=== PATIENT | female | born 1990 | race Caucasian/White ===

== ENCOUNTER 2025-07-10 17:40 | Emergency (ER) | payer OTHER, SELFPAY ==
--- OUTSIDE RECORDS SUMMARY | 2025-07-10 14:49 | XMS_ITS | Encounter Summary ---
Author Organization [facility] Address [address] [place] [address] Care Team Providers Care Media Librarian Name Role Phone No Ref-Primary, Physician Primary Care Provider Reason for Visit * ReasonCommentsNausea & VomitingConstipationAbdominal Pain Encounter Details DateTypeDepartmentCare Team (Latest Contact Info)Dyspklyogqw15/16/2025 2:49 PM CSTEmergency [facility] Emergency Dept [address] [place] [address] Social History Tobacco UseTypesPacks/DayYears UsedDateSmoking Tobacco: Never AssessedAdolescent EducationAnswerDate RecordedGetting School Help NeededNot on file05/02/2023 CommentsNoSex and Gender InformationValueDate RecordedSex Assigned at BirthNot on fileLegal MjwRwfkzl76/04/2012 3:16 AM CSTGender IdentityNot on file Sexual OrientationNot on filedocumented as of this encounter Last Filed Vital Signs Vital SignReadingTime TakenCommentsBlood Brucvbqu562/5707/10/2025 3:14 PM [facility] Cbbgq424007/10/2025 3:14 PM SAUXwizkwumgef05.6 ??C (97.8 ??F)07/10/2025 3:15 PM CSTRespiratory Rtut819609/10/2024 3:14 PM CSTOxygen Yjlomocrjh734%07/10/2025 3:14 PM CSTInhaled Oxygen Concentration--Weight--Height--Body Mass Index--documented in this encounter Functional Status * Calculated C-SSRS Risk Score (Lifetime/Recent)AnswerDate of AssessmentAuthorNo Risk Jvuyhwlmx52/16/2025 3:14 PM Carlota Rodriguez RN * [place] Suicide Severity Rating Scale (Screener/Recent Self-Report)Question AnswerDate of AssessmentAuthor1. Wish to be (Past 1 Month)No07/10/2025 3:14 PM Carlota Rodriguez RN2. Non-Specific Active Suicidal Thoughts (Past 1 Month)No07/10/2025 3:14 PM Carlota Rodriguez, RN6. Suicidal Behavior (Lifetime)No07/10/2025 3:14 PM Carlota Rodriguez RN documented as of this encounter ED Notes * Carlota Lopez RN - 07/10/2025 3:15 PM CST Constipation for the past 4 days. Took exlax last night. Had 4 BMs today. Nausea and vomiting started today. Patient reports taking ODT zofran at home, but states she vomited the medication. In triage, she also reports dizziness and abdominal pain. R COATER R COATER documented in this encounter Plan of Treatment Not on file documented as of this encounter Procedures Procedure NamePriorityDate/TimeAssociated DiagnosisCommentsEXTRA TUBESTAT 07/10/2025 3:36 PM [facility] EXTRA RED TOP IRHSFYZU13/16/2025 3:36 PM [facility] EXTRA BLUE TOP BFDIWVCM12/16/2025 3:36 PM COL[facility] COATER CBC WITH PLATELETS (LIMITED OCCURRENCES)STAT109/10/2024 3:36 PM [facility] BASIC METABOLIC PANEL (LIMITED OCCURRENCES)STAT109/10/2024 3:36 PM [facility] EKG 12-LEAD, TRACING EAYRMPXE36/16/2025 3:21 PM [facility]ATER documented in this encounter Results * Extra Red Top Tube (07/10/2025 3:36 PM [facility]ATER)ComponentValueRef RangeTest Method Analysis TimePerformed AtPathologist SignatureHold AoshmkdzPJB78/16/2025 5:16 PM CST LABORATORYSpecimen (Source)Anatomical Location / LateralityCollection Method / VolumeCollection TimeReceived TimeBloodSTRUCTURE OF LEFT UPPER LIMB / UnknownVenipuncture / Mcngcqt0307/10/2025 3:36 PM CST07/10/2025 4:03 PM [facility] Narrative Authorizing ProviderResult TypeResult StatusAlbin Reddy [facility] - BLOOD ORDERABLESFinal ResultPerforming OrganizationAddressCity/State/ZIP CodePhone Number [facility] [address] Lab (1st floor, no room number) [place] [address], [place] * Extra Blue Top Tube (07/10/2025 3:36 PM [facility])ComponentValueRef RangeTest Method Analysis TimePerformed AtPathologist SignatureHold PrkcqiulMIQ43/16/2025 5:[address] [facility] LABORATORYSpecimen (Source)Anatomical Location / LateralityCollection Method / VolumeCollection TimeReceived TimeBloodSTRUCTURE OF LEFT UPPER LIMB / UnknownVenipuncture / Qmgfwbt0707/10/2025 3:36 PM CST07/10/2025 4:03 PM [facility] Narrative Authorizing ProviderResult TypeResult StatusAlbin Reddy [facility] - BLOOD ORDERABLESFinal ResultPerforming OrganizationAddressCity/State/ZIP CodePhone Number [facility] Lab [address] Lab (1st floor, no room number) [place] [address], [place] * (ABNORMAL) Basic Metabolic Panel (Limited Occurrences) (07/10/2025 3:36 PM [facility]ATER)ComponentValueRef RangeTest MethodAnalysis TimePerformed AtPathologist IutejwnqqPdzpte032843 - 145 mmol/L109/10/2024 4:29 PM CST LABORATORYPotassium 3.93.4 - 5.3 mmol/L109/10/2024 4:29 PM CSTRH LEMPGYBHCZMaqkwefi05765 - 107 mmol/L109/10/2024 4:29 PM CST LABORATORYCarbon Dioxide (CO2)20(L)22 - 29 mmol/L109/10/2024 4:29 PM CST LABORATORYAnion Gap17(H)7 - 15 mmol/L109/10/2024 4:[address] [facility] LABORATORYUrea Nitrogen9.56.0 - 20.0 mg/dL07/10/2025 4:29 PM [facility] LABORATORYCreatinine0.540.51 - 0.95 mg/dL07/10/2025 4:[address] [facility] LABORATORYGFR Estimate>90>60 mL/min/1.82b42607/10/2025 4:[address] [facility] Comment:eGFR calculated using 2020 CKD-EPI equation.Calcium9.08.8 - 10.4 mg/dL 07/10/2025 4:[address] [facility] WUGGVYUAVPAhpnmzu691(H)70 - 99 mg/dL07/10/2025 4:[address] [facility] LABORATORYSpecimen (Source)Anatomical Location / LateralityCollection Method / VolumeCollection TimeReceived TimeBloodSTRUCTURE OF LEFT UPPER LIMB / UnknownVenipuncture / Ikfijtd4007/10/2025 3:36 PM CST07/10/2025 4:03 PM [facility] Narrative Authorizing ProviderResult TypeResult StatusAndелена Reddy [facility] - BLOOD ORDERABLESFinal ResultPerforming OrganizationAddressCity/State/ZIP CodePhone Number [facility] [address] Lab (1st floor, no room number) [place] [address] * CBC with Platelets (Limited Occurrences) (07/10/2025 3:36 PM [facility])Component ValueRef RangeTest MethodAnalysis TimePerformed AtPathologist SignatureWBC Count6.354.00 - 11.00 10e3/uL07/10/2025 4:[address] [facility] LABORATORYRBC Count4.05 3.80 - 5.20 10e6/uL07/10/2025 4:[address] [facility] GEZFUIPXVCKqcpsttblh15.711.7 - 15.7 g/dL07/10/2025 4:[address] [facility] SKBJAOOJCBDmngqxulpq81.435.0 - 47.0 % 07/10/2025 4:[address] [facility] EJDKVEYQKGLNE62.978.0 - 100.0 fL07/10/2025 4:[address] [facility] KXEHXSJKXOUNX91.426.5 - 33.0 pg07/10/2025 4:[address] [facility] LABORATORYMCHC 34.931.5 - 36.5 g/dL07/10/2025 4:[address] [facility] KHNLMOXKMIEQF81.610.0 - 15.0 % 07/10/2025 4:[address] [facility] LABORATORYPlatelet Bkxdl498753 - 450 10e3/uL 07/10/2025 4:[address] [facility] LABORATORYSpecimen (Source)Anatomical Location / LateralityCollection Method / VolumeCollection TimeReceived TimeBloodSTRUCTURE OF LEFT UPPER LIMB / UnknownVenipuncture / Nphslfs5507/10/2025 3:36 PM [facility]ATER 07/10/2025 4:03 PM [facility] Narrative Authorizing ProviderResult TypeResult StatusAlbin SCHWARTZ - BLOOD ORDERABLESFinal ResultPerforming OrganizationAddressCity/State/ZIP CodePhone Number [facility] [address] Lab (1st floor, no room number) [place] [address] * EKG 12-lead, tracing only (07/10/2025 3:21 PM [facility])ComponentValueRef RangeTest MethodAnalysis TimePerformed AtPathologist SignatureSystolic Blood Pressure mmHgRADIOLOGY RESULTSDiastolic Blood PressuremmHgRADIOLOGY RESULTSVentricular Novb08XNSIARIZTYMM RESULTSAtrial Bpbo57QNXSHBHLTUWO RESULTSPR Heupmfkj45vk RADIOLOGY RESULTSQRS Foareoum79niTBCTUHZCU LUQCJDGJR204puFACZAKAKM RESULTSQTc 450msRADIOLOGY RESULTSP Emgp97lutbfwaMQVJQSDEA RESULTSR NOCO28zkgbneuJFZQQNXTB RESULTST Zwmv53dybmgcdWECETPJWP RESULTSInterpretation ECGSinus rhythm with short ND Otherwise normal ECG No previous ECGs available Unconfirmed report - interpretation of this ECG is computer generated - see medical record for final interpretation Confirmed by - EMERGENCY ROOM, PHYSICIAN ([id number]), clinical editor Milan Silva ([id number]) on 07/10/2025 3:33:27PM RADIOLOGY RESULTSSpecimen (Source)Anatomical Location / LateralityCollection Method / VolumeCollection TimeReceived Time07/10/2025 3:21 PM CST07/10/2025 3:33 PM [facility] COATER Narrative Authorizing ProviderResult TypeResult StatusAlbin RHODES ORDERABLES Edited Result - FinalPerforming OrganizationAddressCity/State/ZIP CodePhone Number RADIOLOGY RESULTS documented in this encounter Visit Diagnoses Not on filedocumented in this encounter Care Teams Team MemberRelationshipSpecialtyStart DateEnd Date No Ref-Primary, Physician PCP - General10/30/18documented as of this encounter
[2025-07-10 17:43] VITALS: BP 115/74; PULSE 75; RESP 18; TEMP 37.2; O2SAT 100
--- NOTE | 2025-07-10 17:56 | ED.GENADULT ---
HPI - General Adult General Date Seen: 07/10/25 Chief complaint: Nausea/Vomiting Stated complaint: vomiting, constipated Time Seen by Provider: 07/10/25 17:55 History of Present Illness HPI narrative: 34 yo F presenting to the ER today with vomiting and concern for constipation, with inability to pass much bowel. She had been at another ER but left because the wait time was too long. [facility] she has a past medical history of AD D, anxiety AFTAB, previous construct substance agreement (for Adderall). I am not able to see any lab results from the other ER. She reports that she had gone about 4 days without passing any bowel movement. She had been traveling up to [place] and says she typically does not have bowel movements unless she is at home. Because of her travel she did not have any p.m. on Wednesday, Wednesday, Wednesday, and also did not have 1 on Wednesday. She does not otherwise have a history of constipation or other GI problems. She has no history of GI surgery. No history of IBS or IBD. She had been on antibiotics about a week or 2 ago for a kidney infection (started with Rocephin and then she was put on an oral antibiotic (cannot recall the name)). She has been doing well from that standpoint. No urinary symptoms. No flank pain. No fever. Because she was constipated yesterday evening she took some Ex-Lax. This morning she did have a couple of bowel movements that were initially brown soft and then diarrhea. After that she has developed some pain across her upper abdomen and also nausea and vomiting throughout the day. She has had multiple episodes of nonbilious, nonbloody emesis (has been clear and sometimes yellowish). She went to the ER in [place] but but threw up about 10 or 15 times while waiting in their lobby for an hour and 45 minutes. She and her family decided to leave there and come here to [place] because she was not able to get care quickly enough. She is not having a fever. No blood in her vomit. No headache. She did have 3 alcoholic beverages on Wednesday night when she was with her friends in [place]. No other heavy alcohol intake. Related Data Home Medications ?Medication ?Instructions ?Recorded ?Confirmed escitalopram oxalate 10 mg tablet 10 mg PO DAILY 07/10/25 07/10/25 Previous Rx's ?Medication ?Instructions ?Recorded metoclopramide HCl 10 mg tablet 10 mg PO Q6H PRN nausea and 07/10/25 (Reglan) vomiting #10 tabs Allergies Allergy/AdvReac Type Severity Reaction Status Date / Time No Known Drug Allergies Allergy Verified 07/10/25 19:03 Exam Narrative: Exam Narrative: Constitutional: Appears well-developed and well-nourished. Alert. Conversant. Uncomfortable and was very dramatic in triage. Once she is in bed she is conversant. She is a nurse at [employer]. HENT: Head: Atraumatic. Nose: Nose normal. Mouth/Throat: Oral mucosa is clear but dry. not desiccated or cracked.. no trismus. Pharynx normal. Tonsils symmetric. No tonsillar enlargement, erythema, or exudate. Eyes: Conjunctivae normal. EOM normal. Pupils equal, round, and reactive to light. No scleral icterus. Neck: Normal range of motion. Neck supple. No tracheal deviation present. Cardiovascular: Normal rate, regular rhythm. No gallop. No friction rub. No murmur heard. Symmetric radial artery pulses Pulmonary/Chest: Effort normal. No stridor. No respiratory distress. No wheezes. No rales. No rhonchi . No tenderness. Abdominal: Soft. Bowel sounds normal. No distension. No mass. High epigastric, right upper quadrant, left upper quadrant tenderness. No James sign. No flank tenderness. No lower abdominal tenderness. No distension. No rebound. No guarding. Musculoskeletal: RUE: Normal range of motion. No tenderness. No deformity LUE: Normal range of motion. No tenderness. No deformity RLE: Normal range of motion. No edema. No tenderness. No deformity LLE: Normal range of motion. No edema. No tenderness. No deformity Neurological: Alert and oriented to person, place, and time. Normal strength. CN II-VII intact. No sensory deficit. GCS eye subscore is 4. GCS verbal subscore is 5. GCS motor subscore is 6. Normal coordination Skin: Skin is warm and dry. No rash noted. No pallor. Normal capillary refill. Psychiatric: Normal mood. Normal affect. Const: Vital Signs, click to edit/add: Vital Signs - 24 hr 07/10/25 17:43 07/10/25 20:26 Temperature 99.0 F Pulse Rate 75 Pulse Rate [Right Pulse Oximeter] 75 Respiratory Rate 18 18 Blood Pressure 105/79 Blood Pressure [Ri ght Upper Arm] 115/74 Pulse Oximetry 100 99 Oxygen Delivery Me thod Room Air Room Air Course Course ED Course: Recheck nausea improved but not resolved after Zofran. Having lot of heartburn. Reevaluation(s) Reevaluation #1: Recheck-nausea improved after Reglan. Heartburn resolved after GI cocktail. Reevaluation #2: Recheck-tolerating p.o.. Still cannot have a bowel movement. No further diarrhea. No further vomiting. Vital Signs Vital signs: Initial Vital Signs Temperature 99.0 F 07/10/25 17:43 Temperature Source Temporal Artery Scan 07/10/25 17:43 Pulse Rate 75 07/10/25 17:43 Pulse Rhythm Regular 07/10/25 17:43 Pulse Strength 3+ Normal 07/10/25 17:43 Respiratory Rate 18 07/10/25 17:43 Blood Pressure 115/74 07/10/25 17:43 Blood Pressure Mean 87 07/10/25 17:43 Blood Pressure Position Sitting 07/10/25 17:43 Pulse Oximetry 100 07/10/25 17:43 Oxygen Delivery Method Room Air 07/10/25 17:43 Vital Signs Temperature 99.0 F 07/10/25 17:43 Pulse Rate 75 07/10/25 17:43 Respiratory Rate 18 07/10/25 17:43 Blood Pressure 115/74 07/10/25 17:43 Pulse Oximetry 100 07/10/25 17:43 Oxygen Delivery Method Room Air 07/10/25 17:43 Temperature 99.0 F 07/10/25 17:43 Pulse Rate 75 07/10/25 20:26 Respiratory Rate 18 07/10/25 20:26 Blood Pressure 105/79 07/10/25 20:26 Pulse Oximetry 99 07/10/25 20:26 Oxygen Delivery Method Room Air 07/10/25 20:26 Medications Administered Medications: Discontinued Medications Generic Name Dose Route Start Last Admin Trade Name Freq PRN Reason Stop Dose Admin Diphenhydramine HCl 25 mg 07/10/25 20:12 07/10/25 20:20 Diphenhydramine 50 Mg/Ml Inj IVP 07/10/25 20:13 25 mg ONCE ONE Administration Sodium Chloride 1,000 mls @ 1,000 mls/hr 07/10/25 18:15 07/10/25 19:30 0.9 % Sodium Chloride 1000 Ml IV 07/10/25 19:14 Infused .Q1H KATHY Infusion Lidocaine/Aluminum/Magnesium/Simeth 30 ml 07/10/25 20:47 07/10/25 20:55 Gi Cocktail (Visc Lido/Antacid) 30 Ml PO 07/10/25 20:48 30 ml ONCE ONE Administration Metoclopramide HCl 10 mg 07/10/25 20:12 07/10/25 20:22 Metoclopramide Hcl 5 Mg/Ml Inj IVP 07/10/25 20:13 10 mg ONCE ONE Administration Ondansetron HCl 4 mg 07/10/25 18:02 07/10/25 18:25 Ondansetron 2 Mg/Ml Inj IVP 07/10/25 18:03 4 mg ONCE ONE Administration Medical Decision Making MDM Narrative Medical decision making narrative: This patient presents with vomiting and upper abdominal pain. She had had several days of constipation until she took some Ex-Lax last night and then had 3 soft stools this morning but no further bowel movements now for about 10 or 12 hours. The patient's symptoms and exam could be consistent with a viral GI infection. There is no high fever, severe pain, bilious or bloody emesis, blood or mucous in the stool, severe abdominal pain, or other concerning signs for a bacterial infection. No recent travel or high risk exposure for bacterial pathogen. However she just was on a course of antibiotics for pyelonephritis. We did obtain lab workup which is reassuring and CT scan because of her retracted vomiting which shows signs of colitis (no sign of perforation, abscess, obstruction, or surgical complication). Differential for colitis would include inflammatory bowel disease as well and infection. I have ordered stool studies to look for bacterial enteritis as well as for C. diff. I don't see any evidence for appendicitis, bowel obstruction, abscess, bowel perforation, or other surgical emergency. Labs show no concerning electrolyte disturbance or renal failure. After meds given the patient is feeling better. At this point, the patient is non-septic appearing and well hydrated.I think the patient can be managed as an outpatient. Fortunately her symptoms seem to have abated and she has not had any diarrhea now for tender 12 hours. Will send her home with a stool collection kit in case she has progressing symptoms. Recommended follow-up. Precautions for return to the ER reviewed. We have discussed oral rehydration strategies. They understand and can perform the needed interventions at home. I have provided a prescription for antiemetics to facilitate oral hydration (Reglan). We have discussed the signs and symptoms of worsening dehydration. They understand the need for immediate reevaluation if any of these symptoms occur. They are also directed to obtain close outpatient follow up . Lab Data Labs: Lab Results 07/10/25 07/10/25 Range/Units 18:10 18:52 WBC 8.09 (4.50-11.00) K/uL RBC 4.15 (4.00-5.20) m/uL Hgb 12.9 (12.0-16.0) gm/dL Hct 38.7 (33.0-51.0) % MCV 93 (80-100) fL MCH 31 (26-34) pg MCHC 33 (32-36) gm/dL RDW Coeff of Moo 11.5 (11.5-15.5) % Plt Count 238 (140-440) K/uL Neut % (Auto) 92.3 H (42.0-72.0) % Lymph % (Auto) 5.7 L (20-44) % Giles % (Auto) 1.7 (0.0-11.0) % Eos % (Auto) 0.0 (0.0-7.0) % Baso % (Auto) 0.1 (0.0-3.0) % Neut # (Auto) 7.50 H (1.7-7.0) K/uL Lymph # (Auto) 0.50 L (0.90-2.90) K/uL Giles # (Auto) 0.10 (0.00-0.90) K/UL Eos # (Auto) 0.00 (0.00-0.50) K/uL Baso # (Auto) 0.01 (0.00-0.30) K/uL Abs Immat Gran (auto) 0.02 (0.00-0.30) K/uL Imm/Tot Granulo (auto) 0.2 % Sodium 136 (135-149) mmol/L Potassium 3.9 (3.6-5.1) mmol/L Chloride 105 (96-114) mmol/L Carbon Dioxide 20 (20-32) mmol/L Anion Gap 11 (7-15) mEq/L BUN 10 (5-24) mg/dL Creatinine 0.5 (0.5-1.5) mg/dL Estimated GFR 125 ml/min Glucose 134 H (60-115) mg/dL Calcium 8.9 (8.4-10.6) mg/dL Total Bilirubin 0.7 (0.1-1.5) mg/dL AST 25 (12-35) U/L ALT 22 (4-35) U/L Alkaline Phosphatase 59 (40-150) U/L Total Protein 7.2 (6.0-8.3) g/dL Albumin 4.5 (3.3-5.0) g/dL Lipase 36 (23-300) U/L HCG, Qual Negative (Negative) Urine Color Yellow (Yellow) Urine Appearance Clear (Clear) Urine pH 6.0 (5.0-8.5) Ur Specific [place] >= 1.030 (1.000-1.030) Urine Protein 1+ A (Negative) Urine Glucose (UA) Negative (Negative) Urine Ketones 4+ A (Negative) Urine Blood Trace-intact A (Negative) Urine Nitrite Negative (Negative) Urine Bilirubin Negative (Negative) Urine Urobilinogen 0.2 (0.2-1.0) Ur Leukocyte Esterase Negative (Negative) Urine RBC 0-2 (0-2) Urine WBC 0-2 (0-5) Ur Squamous Epith Cells None (None-Few) Urine Bacteria None (None) Imaging Data CT scan - abdomen: Attestation: I have reviewed the pertinent imaging results. Radiologist's impression: IMPRESSION: 1. Findings suggestive of a diffuse nonspecific colitis. No evidence of bowel obstruction. 2. Bladder wall thickening is likely due to underdistention, however correlation with urinalysis is recommended. Discharge Plan Discharge Clinical Impression: Colitis, Vomiting, Acute dehydration Patient Disposition: Home, Self-Care Condition: Stable Instructions: Acute Nausea and Vomiting (DC), Colitis (ED) Additional Instructions: As we discussed, so far your laboratory workup looks reassuring. Your CT scan shows signs of mild colitis (inflammation of your large intestine). Because of the colitis is not clear at this time. This could be infectious, even possibly C diff. if you have any further diarrhea, please collect a sample and bring stool sample back to the [facility] lab for further testing. Please use nausea medication as needed to help treat nausea and vomiting. Drink plenty of fluids to stay hydrated. At solid foods your feeling better. Please follow-up with your regular doctor, or come back to the ER, in 48-72 hours if you are not feeling any better. If you get worse, such as high fever, bloody stool, severe abdominal pain, uncontrolled vomiting, please come back to the ER right away. Prescriptions: New metoclopramide HCl [Reglan] 10 mg tablet 10 mg PO Q6H PRN (Reason: nausea and vomiting) Qty: 10 0RF No Action escitalopram oxalate 10 mg tablet 10 mg PO DAILY Follow Up/Referrals: Provider,Not a Local [Primary Care Provider, Family Practice] Stand Alone Forms: [employer] Info Instructions
--- NOTE | 2025-07-10 18:02 | CRLHL7_ITS ---
For Patients: As a result of the Century Cures Act, medical imaging exams and procedure reports are released immediately into your electronic medical record. You may view this report before your referring provider. If you have questions, please contact your health care provider. INDICATION: Vomiting, nausea, no BM. TECHNIQUE: CT of the abdomen and pelvis acquired with 62 cc Isovue 370 IV contrast. Coronal and sagittal reconstructions. COMPARISON: None. FINDINGS: Lower chest: Unremarkable. Liver: Normal in size and attenuation. No suspicious masses. Gallbladder and bile ducts: Unremarkable. No biliary dilation. Spleen: Unremarkable. Pancreas: Unremarkable. Adrenal glands: Unremarkable. Kidneys, Ureters, and Bladder: Symmetric enhancement. No hydronephrosis or ureteral dilation. No obstructing urinary calculi. Decompressed thick-walled urinary bladder. Reproductive organs: IUD in the uterus. Small cysts or follicles in the left ovary which are likely physiologic. GI tract/Peritoneum: The stomach is grossly unremarkable. No small bowel dilation. The colon is mostly decompressed which limits evaluation, however there appears to be mild diffuse colonic wall thickening and mucosal hyperenhancement suggesting inflammation. Negative appendix. No intraperitoneal free air. Small amount of free fluid in the pelvis may be physiologic or reactive. Vasculature: Abdominal aorta is normal in caliber. Mesenteric arteries appear patent. Lymph nodes: No lymphadenopathy. Abdominal Wall: Abdominal wall scarring. Tiny fat containing umbilical hernia. Bones: Unremarkable for age. IMPRESSION: 1. Findings suggestive of a diffuse nonspecific colitis. No evidence of bowel obstruction. 2. Bladder wall thickening is likely due to underdistention, however correlation with urinalysis is recommended. Please note that all CT scans at this facility use dose modulation, iterative reconstruction, and/or weight-based dosing when appropriate to reduce radiation dose to as low as reasonably achievable. Dictated by Abbie Baca MD @ 07/10/2025 7:28:47 PM (Electronically Signed)
[2025-07-10 18:25] LABS: Hematocrit* 38.7 % (33.0-51.0); Hemoglobin* 12.9 gm/dL (12.0-16.0); Immature Granulocytes Abs Auto 0.02 K/uL (0.00-0.30); Immature Granulocytes Pct Auto 0.2 %; Mean Corpuscular HGB Conc 33 gm/dL (32-36); Mean Corpuscular Hemoglobin 31 pg (26-34); Mean Corpuscular Volume 93 fL (80-100); RDW Coefficient of Variation % 11.5 % (11.5-15.5); Red Blood Count* 4.15 m/uL (4.00-5.20); White Blood Count* 8.09 K/uL (4.50-11.00)
[2025-07-10] MEDS: ONDANSETRON 2 MG/ML inj 4 MG IVP (18:25)
[2025-07-10 18:33] LABS: Albumin* 4.5 g/dL (3.3-5.0); Chloride* 105 mmol/L (96-114); Potassium* 3.9 mmol/L (3.6-5.1); Sodium* 136 mmol/L (135-149)
[2025-07-10 18:36] LABS: Alanine Aminotransferase* 22 U/L (4-35); Alkaline Phosphatase* 59 U/L (40-150); Anion Gap 11 mEq/L (7-15); Aspartate Amino Transferase* 25 U/L (12-35); Bilirubin Total* 0.7 mg/dL (0.1-1.5); Blood Urea Nitrogen* 10 mg/dL (5-24); Carbon Dioxide* 20 mmol/L (20-32); Creatinine* 0.5 mg/dL (0.5-1.5); Estimated Glomerular Filt Rate 125 ml/min; Total Protein* 7.2 g/dL (6.0-8.3)
[2025-07-10 18:37] LABS: Calcium* 8.9 mg/dL (8.4-10.6); Glucose* 134 mg/dL (60-115)
--- OUTSIDE RECORDS SUMMARY | 2025-07-10 18:40 | XMS_ITS | Clinical Summary ---
Author Organization [facility] Address [address] [place] [address] Care Team Providers Care Melting Furnace Skimmer Name Role Phone No Ref-Primary, Physician Primary Care Provider Allergies No known active allergies Medications MedicationSigDispense QuantityRefillsLast FilledStart DateEnd DateStatus prochlorperazine (COMPAZINE) 10 MG tablet Take 1 tablet (10 mg) by mouth every 6 hours as needed (headache, please take with benadryl 25mg) 10 tablet 10/28/2018Active ibuprofen (ADVIL/MOTRIN) 200 MG tablet Take 200 mg by mouth every 4 hours as needed for mild painActive vyzmbmm-pxfskmeoyualu-yaomkbav (EXCEDRIN MIGRAINE) 250-250-65 MG tablet Take 1 tablet by mouth every 6 hours as needed for headachesActive SUMAtriptan (IMITREX) 25 MG tablet Take 25-100mg one time. May repeat 25mg every two hours up to a maximum of 200mg in 24 hours. 8 tablet 10/30/2018Active Resolved Problems ProblemNoted DateDiagnosed DateResolved DateTemporomandibular dysfunction naamvnsa09/09/2021Tension kfxzcves48/09/2021Neck pain /09/2021 Encounters DateTypeDepartmentCare AxlzKviorzwjsrh74/16/2025 2:49 PM CSTEmeaide [facility] [address] [place] [address] 07/10/2025Travelfrom Last 3 Months Social History Tobacco UseTypesPacks/DayYears UsedDateSmoking Tobacco: Never AssessedAdolescent EducationAnswerDate RecordedGetting School Help NeededNot on file05/02/2023 CommentsNoSex and Gender InformationValueDate RecordedSex Assigned at BirthNot on fileLegal CljChwvxw19/04/2012 3:16 AM CSTGender IdentityNot on file Sexual OrientationNot on file Last Filed Vital Signs Vital SignReadingTime TakenCommentsBlood Czzwmdem063/5707/10/2025 3:14 PM BIRD KEEPER Uczjk119807/10/2025 3:14 PM ZYFRrxtagprmue47.6 ??C (97.8 ??F)07/10/2025 3:15 PM CSTRespiratory Nphq689009/10/2024 3:14 PM CSTOxygen Mllqksjqoe297%07/10/2025 3:14 PM CSTInhaled Oxygen Concentration--Ndefec19 kg (134 lb 7.7 oz)10/30/2018 2:51 PM CDTHeight--Body Mass Index-- Plan of Treatment Not on file Procedures Procedure NamePriorityDate/TimeAssociated DiagnosisCommentsEXTRA RED TOP TUBE 07/10/2025 3:36 PM BIRD KEEPER EXTRA BLUE TOP JSLEUHES85/16/2025 3:36 PM BIRD KEEPER EXTRA WJYSHZYU00/16/2025 3:36 PM BIRD KEEPER BASIC METABOLIC PANEL (LIMITED OCCURRENCES)07/10/2025 3:36 PM BIRD KEEPER CBC WITH PLATELETS (LIMITED OCCURRENCES)07/10/2025 3:36 PM BIRD KEEPER EKG 12-LEAD, TRACING USXJNPTX96/16/2025 3:21 PM BIRD KEEPER from Last 3 Months Results * Extra Red Top Tube (07/10/2025 3:36 PM BIRD KEEPER)ComponentValueRef RangeTest Method Analysis TimePerformed AtPathologist SignatureHold SxknilsoLOA84/16/2025 5:16 PM [facility] LABORATORYSpecimen (Source)Anatomical Location / LateralityCollection Method / VolumeCollection TimeReceived TimeBloodSTRUCTURE OF LEFT UPPER LIMB / UnknownVenipuncture / Hghywks7307/10/2025 3:36 PM CST07/10/2025 4:03 PM BIRD KEEPER Narrative Authorizing ProviderResult TypeResult StatusAlbin Reddy MDLAB - BLOOD ORDERABLESFinal ResultPerforming OrganizationAddressCity/State/ZIP CodePhone Number [facility] [address] Lab (1st floor, no room number) [place] [address], [facility] * Extra Blue Top Tube (07/10/2025 3:36 PM BIRD KEEPER)ComponentValueRef RangeTest Method Analysis TimePerformed AtPathologist SignatureHold SkcwexdgFVH41/16/2025 5:16 PM [facility] LABORATORYSpecimen (Source)Anatomical Location / LateralityCollection Method / VolumeCollection TimeReceived TimeBloodSTRUCTURE OF LEFT UPPER LIMB / UnknownVenipuncture / Vnfjpws6107/10/2025 3:36 PM CST07/10/2025 4:03 PM BIRD KEEPER Narrative Authorizing ProviderResult TypeResult StatusAlbin SCHWARTZ - BLOOD ORDERABLESFinal ResultPerforming OrganizationAddressCity/State/ZIP CodePhone Number [facility] [address] Lab (1st floor, no room number) [place] [address], [facility] * CBC with Platelets (Limited Occurrences) (07/10/2025 3:36 PM BIRD KEEPER)Component ValueRef RangeTest MethodAnalysis TimePerformed AtPathologist SignatureWBC Count6.354.00 - 11.00 10e3/uL07/10/2025 4:08 PM [facility] LABORATORYRBC Count4.05 3.80 - 5.20 10e6/uL07/10/2025 4:08 PM [facility] UOFBXOOCGCJqvhuphzea88.711.7 - 15.7 g/dL07/10/2025 4:08 PM [facility] LYRBHGGHDYTznsfwiede46.435.0 - 47.0 % 07/10/2025 4:08 PM [facility] ADRHVQMXTDKTW26.978.0 - 100.0 fL07/10/2025 4:08 PM [facility] EPJHWEHRJBPTQ47.426.5 - 33.0 pg07/10/2025 4:08 PM [facility] LABORATORYMCHC 34.931.5 - 36.5 g/dL07/10/2025 4:08 PM [facility] RPTPFYXJOETMN27.610.0 - 15.0 % 07/10/2025 4:08 PM [facility] LABORATORYPlatelet Ewene291010 - 450 10e3/uL 07/10/2025 4:08 PM [facility] LABORATORYSpecimen (Source)Anatomical Location / LateralityCollection Method / VolumeCollection TimeReceived TimeBloodSTRUCTURE OF LEFT UPPER LIMB / UnknownVenipuncture / Qfhgzfl3307/10/2025 3:36 PM BIRD KEEPER 07/10/2025 4:03 PM BIRD KEEPER Narrative Authorizing ProviderResult TypeResult StatusAlbin Reddy MDLAB - BLOOD ORDERABLESFinal ResultPerforming OrganizationAddressCity/State/ZIP CodePhone Number [facility] [address] [facility] Lab (1st floor, no room number) [place] [address], [facility] * (ABNORMAL) Basic Metabolic Panel (Limited Occurrences) (07/10/2025 3:36 PM BIRD KEEPER)ComponentValueRef RangeTest MethodAnalysis TimePerformed AtPathologist MozbzfyktAwxgkf098262 - 145 mmol/L109/10/2024 4:29 PM [facility] LABORATORYPotassium 3.93.4 - 5.3 mmol/L109/10/2024 4:29 PM [facility] FLUABJLYSNPbuzyuou02529 - 107 mmol/L109/10/2024 4:29 PM [facility] LABORATORYCarbon Dioxide (CO2)20(L)22 - 29 mmol/L109/10/2024 4:29 PM [facility] LABORATORYAnion Gap17(H)7 - 15 mmol/L109/10/2024 4:29 PM [facility] LABORATORYUrea Nitrogen9.56.0 - 20.0 mg/dL07/10/2025 4:29 PM [facility] LABORATORYCreatinine0.540.51 - 0.95 mg/dL07/10/2025 4:29 PM [facility] LABORATORYGFR Estimate>90>60 mL/min/1.04c97507/10/2025 4:29 PM [facility]OR[facility]ORY Comment:eGFR calculated using 2020 CKD-EPI equation.Calcium9.08.8 - 10.4 mg/dL 07/10/2025 4:29 PM [facility] BJRBLBDIGSAmmazbk141(H)70 - 99 mg/dL07/10/2025 4:29 PM [facility] LABORATORYSpecimen (Source)Anatomical Location / LateralityCollection Method / VolumeCollection TimeReceived TimeBloodSTRUCTURE OF LEFT UPPER LIMB / UnknownVenipuncture / Nyraeek7907/10/2025 3:36 PM CST07/10/2025 4:03 PM BIRD KEEPER Narrative Authorizing ProviderResult TypeResult StatusAlbin SCHWARTZ - BLOOD ORDERABLESFinal ResultPerforming OrganizationAddressCity/State/ZIP CodePhone Number [facility] [address] Lab (1st floor, no room number) [place] [address], [facility] * EKG 12-lead, tracing only (07/10/2025 3:21 PM BIRD KEEPER)ComponentValueRef RangeTest MethodAnalysis TimePerformed AtPathologist SignatureSystolic Blood Pressure mmHgRADIOLOGY RESULTSDiastolic Blood PressuremmHgRADIOLOGY RESULTSVentricular Wesd59KVGPZSVVFVWD RESULTSAtrial Mizr14WVGCZKJJHLMD RESULTSPR Xmwrzebd46ue RADIOLOGY RESULTSQRS Agzrmzcq14wpOQSFLUAIW PRBXVELRH266obNPOGFCAOF RESULTSQTc 450msRADIOLOGY RESULTSP Aevl70ccnhsluKVMSVVCAY RESULTSR WBMB09nyzxhnkFIUBWUNOW RESULTST Mfzi24smojcawSVAKHCNWP RESULTSInterpretation ECGSinus rhythm with short NM Otherwise normal ECG No previous ECGs available Unconfirmed report - interpretation of this ECG is computer generated - see medical record for final interpretation Confirmed by - EMERGENCY ROOM, PHYSICIAN ([id number]), purchasing expeditor Milan Silva ([id number]) on 07/10/2025 3:33:27PM RADIOLOGY RESULTSSpecimen (Source)Anatomical Location / LateralityCollection Method / VolumeCollection TimeReceived Time07/10/2025 3:21 PM CST07/10/2025 3:33 PM BIRD KEEPER Narrative Authorizing ProviderResult TypeResult StatusAlbin RHODES ORDERABLES Edited Result - FinalPerforming OrganizationAddressCity/State/ZIP CodePhone Number RADIOLOGY RESULTS from Last 3 Months Insurance Care Teams Team MemberRelationshipSpecialtyStart DateEnd Date No Ref-Primary, Physician PCP - General10/30/18
--- OUTSIDE RECORDS SUMMARY | 2025-07-10 18:40 | XMS_ITS | Encounter Summary ---
Author Organization [facility] Address [address] [place] [address] Care Team Providers Care Customer Marketing Assistant Name Role Phone No Ref-Primary, Physician Primary Care Provider Encounter Details DateTypeDepartmentCare Team (Latest Contact Info)Zxlvulgbdpa31/16/2025Travel Social History Tobacco UseTypesPacks/DayYears UsedDateSmoking Tobacco: Never AssessedAdolescent EducationAnswerDate RecordedGetting School Help NeededNot on file05/02/2023 CommentsNoSex and Gender InformationValueDate RecordedSex Assigned at BirthNot on fileLegal WxwNbjimz65/04/2012 3:16 AM CSTGender IdentityNot on file Sexual OrientationNot on filedocumented as of this encounter Functional Status * Calculated C-SSRS Risk Score (Lifetime/Recent)AnswerDate of AssessmentAuthorNo Risk Ecjlvlsuq51/16/2025 3:14 PM Carlota Rodriguez RN * Walker Suicide Severity Rating Scale (Screener/Recent Self-Report)Question AnswerDate of AssessmentAuthor1. Wish to be (Past 1 Month)No07/10/2025 3:14 PM Carlota Rodriguez RN2. Non-Specific Active Suicidal Thoughts (Past 1 Month)No07/10/2025 3:14 PM Carlota Rodriguez RN6. Suicidal Behavior (Lifetime)No07/10/2025 3:14 PM Carlota Rodriguez RN documented as of this encounter Plan of Treatment Not on file documented as of this encounter Visit Diagnoses Not on filedocumented in this encounter Care Teams Team MemberRelationshipSpecialtyStart DateEnd Date No Ref-Primary, Physician PCP - General10/30/18documented as of this encounter
--- OUTSIDE RECORDS SUMMARY | 2025-07-10 18:40 | XMS_ITS | Patient Health Record ---
Author Organization [facility] Address [facility] [address] [place] [address] Care Team Providers Care Custody Assistant Name Role Phone [employer] Unavailable Unavailable Reason For Referral No Information Medications Medication SIG (Take, Route, Frequency, Duration) Notes Start Date End Date Status Sertraline HCl 100 MG Tablet TAKE ONE TA BLET BY MOUTH EVERY MORNING Oral; Duration: 30 Days Active Social History Social History Drugs/Alcohol:Social InfoQuestionAnswerNotesAlcoholDo you consume beer, wine, or other alcoholic beverages?Yes? 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)ActiveconfirmedProblemAnkyloglossia (95396753)Ankyloglossia (Q38.1)Active confirmedProblemArticular disc disorder of left temporomandibular joint ([id number])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
--- OUTSIDE RECORDS SUMMARY | 2025-07-10 18:40 | XMS_ITS | Clinical Summary ---
Author Organization [facility] Address Formerly [facility], [address] [place] [address] Care Team Providers Care Dog Or Animal Sitter Name Role Phone Dena Nelson Primary Care Provider Мария Daugherty DO Unavailable [phone] Allergies No known active allergies Medications MedicationSigDispense QuantityRefillsLast FilledStart DateEnd DateStatus multivit-min/ferrous fumarate (MULTI VITAMIN ORAL) Take by mouth.Active traZODone (DESYREL) 50 mg tablet Indications:Insomnia, psychophysiologicalTAKE 1 TABLET(50 MG) BY MOUTH AT BEDTIME. NOVEMBER REPEAT 1 TIME 90 Tablet 5Active dextroamphetamine-amphetamine (Adderall XR) 30 mg Extended-Release capsule Indications:Attention deficit hyperactivity disorder (ADHD), predominantly inattentive type,Controlled substance agreement signedTake 1 Capsule (30 mg) by mouth once daily. 30 Capsule /5Active dextroamphetamine-amphetamine (Adderall XR) 30 mg Extended-Release capsule Indications:Attention deficit hyperactivity disorder (ADHD), predominantly inattentive type,Controlled substance agreement signedTake 1 Capsule (30 mg) by mouth once daily. 30 Capsule /6Active dextroamphetamine-amphetamine (Adderall XR) 30 mg Extended-Release capsule Indications:Attention deficit hyperactivity disorder (ADHD), predominantly inattentive type,Controlled substance agreement signedTake 1 Capsule (30 mg) by mouth once daily. 30 Capsule 6Active escitalopram oxalate (LEXAPRO) 10 mg tablet Indications:AnxietyTake 1 Tablet (10 mg) by mouth once daily in the morning. 90 Tablet 5Active ondansetron (ZOFRAN ODT) 4 mg disintegrating tablet Indications:NauseaPlace 1 Tablet (4 mg) on the tongue every 8 hours if needed for Nausea/Vomiting. 30 Tablet 5Active ondansetron 4 mg disintegrating tablet Indications:NauseaPlace 1 Tablet (4 mg) on the tongue every 8 hours if needed for Nausea/Vomiting. 30 Tablet Discontinued(Reorder (E-cancel not sent)) clindamycin (CLEOCIN) 2 % vaginal cream Discontinued(*Patient states no longer taking) escitalopram oxalate (LEXAPRO) 10 mg tablet Indications:AnxietyTake 1 Tablet (10 mg) by mouth once daily in the morning. 90 Tablet Discontinued(Reorder (E-cancel not sent)) dextroamphetamine-amphetamine (Adderall XR) 20 mg Extended-Release capsule Indications:Attention deficit disorder, unspecified type,Controlled substance agreement signedTake 1 Capsule (20 mg) by mouth once daily. 30 Capsule Discontinued(*Medication adjustment)Hospital, Clinic, or Other Facility Administered MedicationOrdered DoseRouteFrequencyStart DateEnd DateStatus levonorgestrel (MIRENA) 21 mcg/24 hours (8 yrs) 52 mg intrauterine device (IUD) 1 Device Indications: contraception1 DeviceIUQ 8 YEARS5Active Active Problems ProblemNoted DateDiagnosed AdxhQvomaga30/30/2023Controlled substance agreement mhbozg7303/13/2019CIN I (cervical intraepithelial neoplasia I)01/23/2018 Overview (06/18/2025): 12/2008 LSIL 12/2008 [place]: No biopsy 01/2011 ASCUS/HPV+ 02/2011 [place]: ECC Nondiagnostic specimen 11/2011 NIL 11/2011 UNS 01/2012 NIL 03/2013 NIL 05/2016 ASCUS/HPV+ 06/2016 [place]: No biopsy 09/2017 NIL/HPV+ 01/2018 [place]: Biopsy AFTAB 1 09/2019 NIL/HPV+ 01/2021 NIL/HPV 16+ 04/2021 [place]: Biopsy Benign 09/2022 ASCUS/HPV 16+ 01/2023 [place]: Biopsy Focal squamous atypia, ECC Benign 02/2024 NIL/HPV+, HPV 16+ 06/11/25 [place]: AFTAB I Plan: HPV-based testing due 05/2026 (per provider additional routing comment 06/18/25) ADD (attention deficit disorder)09/23/2009 Resolved Problems ProblemNoted DateDiagnosed DateResolved DateEncounter for induction of labor SVD (spontaneous vaginal delivery) Encounter for supervision of other normal , unspecified trimester / Overview (09/18/2020): 29 y.o. Amber Concerns this Spotting Bleeding: no current concerns- subchorionic hemorrhage per US per patient in early Medical concerns: ADD, Anxiety- +HPV- plans colposcopy after Hx of thyroid disorder: no ASA indicated-High Risk for preeclampsia: no H/O vag delivery X 2 08/25/17- Rowena Leila 04/22/15- Josselyn 2009 Genetic screening: completed NIPT and FAS at 20 weeks at [facility]- getting records, no concerns per patient BMI:22.93 pre-; 25-35 # Recommended wt gain HSV: denies Ultrasound findings: Flu vaccine: fall 2019 Pertussis Vaccine: Peds: : Robson ARMENDARIZ (normal spontaneous vaginal delivery)Vaginal delivery Supervision of normal first zzznxylyc67 Overview (03/19/2015): 23 y.o. Normal quad screen Family history congenital heart defect - normal LVL 2, anterior placenta, girl GBBS + urine culture RN at [facility] Unspecified pogwmcvhcwj26 Overview (09/23/2009): PAP SMEAR 01/14/2009 Encounters DateTypeDepartmentCare JewvErmhnkxngtn59/20/2025 8:[address] [facility] [address] [place] [address] Dena Nelson PA Telehealth (No vitals taken ); Medication Management (Follow up Adderall ) 06/14/2025Telephone L [facility] [phone] Dena Nelson PA Lab (No pap collected?)06/13/2025Telephone [address] [address] Ginette Gilliland PA 06/11/2025 10:30 AM CSTProcedure Only [address] [address] Ginette Gilliland PA Procedure (Colposcopy)06/11/2025Telephone [address] [address] Ginette Gilliland PA Lab06/11/20259228Buwwpw10/10/2025Orders Only [facility] [address] [place] [address] Dena Nelson PA Lab05/29/2025Telephone [facility] [address] [place] [phone] Dena Nelson PA Referral (UPDATE ORDER FOR COLPOSCOPY )05/25/2025Refill [facility] [address] [place] [phone] Dena Nelson PA Refill Request (Trazodone)from Last 3 Months Immunizations ImmunizationAdministration DatesNext DueAMB INFLUENZA, IIV4 (AGE=>6MOS) MDV (Flu Clinic Only)04/24/2019COVID-19 vaccine ([employer] 30mcg/0.3mL) PF, MDV 09/10/2020,1DTP06/30/1990,09/17/1989,06/21/1989,02/10/1989DTaP 03/06/1994Hepatitis A (Peds)10/28/2004,09/20/2002Hepatitis B (Peds)09/20/2001, 04/25/2001,12/08/2000Hib Conjugate, Rnxgxmmazye60/06/2009Human Papilloma Virus Pkrdgxs0707/06/2008,03/16/2008,01/05/2008INFLUENZA, IIV3 PF (AGE >= 6 MO) 04/19/2025,06/09/2024Inactivated Polio Vvqatbh0606/12/2011Influenza Intradermal PF 18-64 yrs05/03/2020Influenza Virus, Ncuvxhvofoa10/05/2020,04/19/2018Influenza, IIV3 (Age >=3 years)05/11/2011,07/02/2010Influenza, HEF480/11/2022,05/16/2021, 04/22/2017,04/25/2016,04/23/2015MMR12/08/2000,03/04/1990Meningococcal Vaccine 01/19/2007Oral Polio Wyqrljk9503/06/1994,06/30/1990,06/21/1989,02/10/1989Td (Age >=7 Years)09/20/2002Tdap10/16/2020,07/01/2017,02/19/2015,02/17/2011Tuberculin (PPD)02/06/2009,01/14/2009Typhoid (injectable)06/12/2011Yellow Fever07/15/2011 Family History Medical HistoryRelationNameCommentsGood HealthBrotherHypertensionFatherOther Fatherknown heart defectCancer-prostateMaternal GrandfatherDiabetesMaternal Grandfathertype IIHeart attackMaternal GrandmotherOtherMaternal GrandmotherCOPD; SmokerGood HealthMotherHeart DiseasePaternal GrandfatherHyperlipidemiaPaternal GrandfatherHypertensionPaternal GrandfatherHypertensionPaternal Grandmother Psychiatric illnessPaternal GrandmotherDepression; Bipolar; Anxiety HyperlipidemiaPaternal UncleHypertensionPaternal UncleRelationNameStatusComments BrotherAliveDaughter 1AliveDaughter 2AliveFatherAliveMaternal GrandfatherAlive Maternal GrandmotherDeceasedMotherAlivePaternal GrandfatherDeceasedPaternal GrandmotherDeceasedPaternal UncleDeceased Social History Tobacco UseTypesPacks/DayYears UsedDateSmoking Tobacco: NeverPassive Smoke Exposure: NeverSmokeless Tobacco: Never Tobacco Cessation:Counseling Given: No Alcohol UseStandard Drinks/WeekCommentsYes0 (1 standard drink = 0.6 oz pure alcohol)occasionallyPHQ-2AnswerDate RecordedPHQ-2 TOTAL UHGDR091Social ConnectionsAnswerDate RecordedDo you often feel lonely or isolated from those around you?lcohol UseAnswerDate RecordedHow often do you have a drink containing alcohol?How many drinks containing alcohol do you have on a typical day when you are drinking?How often do you have five or more drinks on one occasion?Financial Resource StrainAnswer Date RecordedDifficulty of Paying Living Nltdcwal465ifficulty of Paying Living ExpensesNot on file03/22/2024Food InsecurityAnswerDate RecordedDo you worry your food will run out before you are able to buy more? Transportation NeedsAnswerDate RecordedDoes lack of transportation keep you from medical appointments?oes lack of transportation keep you from work, meetings or getting things that you need?Housing StabilityAnswerDate RecordedWhat is your housing situation today?UtilitiesAnswerDate RecordedDo you have trouble paying for utilities (for example, heat, electricity, water, phone)?regnantCommentsNoSex and Gender InformationValueDate RecordedSex Assigned at BirthNot on fileLegal SexFemale 08/08/2012 7:43 AM CSTGender IdentityNot on fileSexual OrientationNot on file OccupationIndustryJob Start DateJob End DateRN-NICUNot on fileNot on fileNot on file Obstetrics History GravidaParaTermPretermABIABSABEctopicMultipleLivingLive [id number] OutcomeGATotal LaborLabor/2nd/3vyUbrbueAxxAbgqTxrpBJPPdgS9F8NqyzEldy51/2009SAB 04/22/20156973Mllu51q7z4.12 kg (6 lb 14.1 oz)MTgmJzufxhkrLPictpp33MvnvBionbddndpfws: None08/25/20176755Enbt67j4e1.01 kg (6 lb 10.2 oz)OWlsTysrwtxoZmzwis01Rvfs AnnDr. CorcoranComplications:NoneDelivery Location[facility]20203764Nlmq59b1k 3.04 kg (6 lb 11.2 oz)MVAGINAL EPKLZnfhvywdYdjesf536ZKWNRFDV,Мария Francisco, DOComplications:NoneDelivery Location:Hospital (UTD 2000 MB L&D TRIAGE)CommentsLGSIL With (-) HPV 01/14/09. Colpo done with no lesions seen. Recommend recheck 1 year. Last Filed Vital Signs Vital SignReadingTime TakenCommentsBlood Fuowjnxl279/7606/11/2025 10:38 AM TAPER OPERATOR Awjtx07669/17/2025 10:38 AM PGZKfqnhkfdiur78.7 ??C (98.1 ??F)04/09/2022 9:44 AM CDTRespiratory Wmod947912/29/2020 7:52 AM CDTOxygen Yyoqrjhtec449%02/15/2025 10:59 AM CDTInhaled Oxygen Concentration--Tphrfq12.6 kg (126 lb 14.4 oz)06/11/2025 10:38 AM CPAAruqhj455 cm (5' 5.75)09/26/2024 8:21 AM CSTBody Mass Index20.64 09/26/2024 8:21 AM TAPER OPERATOR Plan of Treatment Health MaintenanceDue DateLast DoneCommentsCOVID-19 vaccine series ( season)/, 08/20/2020MI (ht and wt on same day) for age 18+ 09/26/2024, 03/22/2024, 10/19/2022, Additional history exists Depression screening for age 12+, 03/19/2025, 11/06/2024, Additional history existsPap test for age 21-65/ (Verified in Care Everywhere or Patient Record), 03/22/2024, 03/22/2024, Additional history existsTetanus fkkrkhy07/, 07/01/2017, 02/19/2015, Additional history existsHepatitis B series for 19+Esjeogedz45/26/2002, 04/25/2001, 12/08/2000HPV series for age 9-38Affcpwmry76/12/2008, 03/16/2008, 01/05/2008HIV for age 15-91Nryudkgld23/04/2025, 09/12/2024, 01/12/2017, Additional history existsHepatitis C screening for age 18-50Kvtzyqzye39/04/2025, 09/12/2024, 03/22/2024Influenza BkryhexCpzwatpir44/25/2025, 06/09/2024, 04/29/2023, Additional history existsPneumococcal series for age 6-49Aged OutNo longer eligible based on patient's age to complete this topic Procedures Procedure NamePriorityDate/TimeAssociated DiagnosisCommentsPATH TISSUE EXAM Pwnmvpz6606/11/2025 11:05 AM TAPER OPERATOR Human papillomavirus (HPV) type 16 DNA detected in cervical specimen TRICHOMONAS, SUSHIL, AND BACTERIAL VAGINOSIS BY HTAZezkaot24/17/2025 11:00 AM TAPER OPERATOR Vaginal discharge GC CHLAMYDIA TRACH FDVJULdigsas35/17/2025 11:00 AM TAPER OPERATOR Vaginal discharge ANTI HIV 1/6Qxpuflx75/04/2025 8:57 AM TAPER OPERATOR Screening for STDs (sexually transmitted diseases) ANTI BXFHvwhnqx54/04/2025 8:57 AM TAPER OPERATOR Screening for STDs (sexually transmitted diseases) HPV HIGH EDNHRzhsiib40/28/2024 12:20 PM CDT Screening for cervical cancer from Last 3 Months or Most Recently Relevant to Health Maintenance Results * PATH TISSUE EXAM (06/11/2025 11:05 AM TAPER OPERATOR)ComponentValueRef RangeTest Method Analysis TimePerformed AtPathologist SignatureCase ReportPathology Report ?Case: [id number] ? Authorizing Provider: ??Ginette Gilliland PA Collected: ? 06/11/2025 1105 ? Ordering Location: ? [facility] ?Received: ?06/11/2025 1450 ? Specialty Clinic ? Pathologist: ? Cristina Sanchez MD ? Specimens: ?? A) - Cervical Biopsy, 9 o clock ? B) - Cervical Biopsy, 6 o clock ? C) - Endocervical Curettings ? 06/13/2025 11:50 AM [facility] LABORATORYFinal DiagnosisA) CERVIX, 9 O'CLOCK, BIOPSY: 1. Low grade squamous intraepithelial lesion (AFTAB 1) ?? a. Sampling: Ectocervix ?? b. Transformation zone: Not visualized 2. Negative for high grade AFTAB and invasive carcinoma B) CERVIX, 6 O'CLOCK, BIOPSY: 1. Low grade squamous intraepithelial lesion (AFTAB 1) ?? a. Sampling: Ectocervix and endocervix ?? b. Transformation zone: Not visualized 2. Negative for high grade AFTAB and invasive carcinoma C) ENDOCERVIX, CURETTAGE: 1. Fragments of benign endocervical tissues 2. Negative for glandular neoplasia, squamous intraepithelial lesion, and malignancy 06/13/2025 11:50 AM [facility] at 1150 CSTCommentThe current biopsies may explain the prior positive HPV test. The prior Pap test slides were also reviewed for correlation ([id number]).06/13/2025 11:50 AM [facility] LABORATORYClinical InformationNIL Pap, persistent positive HPV 16 and non 16/18; history of LSIL and ASCUS Paps. Has implant and Mirena IUD.06/13/2025 11:50 AM [facility] LABORATORYGross DescriptionA) Received in formalin, labeled with the patient's name and 9:00, is a single bonilla mucosal fragment measuring 0.3 cm. The specimen is submitted in toto in one cassette. B) Received in formalin, labeled with the patient's name and 6:00, is a single bonilla mucosal fragment measuring 0.3 cm. The specimen is submitted in toto in one cassette. C) Received in formalin, labeled with the patient's name and ECC, is a 0.4 x 0.2 x 0.1 cm aggregate of possible pink-bonilla mucosa admixed with mucous. The specimen is entirely submitted in one cassette. VRS 11:50 AM [facility] Microscopic DescriptionThe final diagnosis is based on microscopic examination of appropriate sections of all specimens.06/13/2025 11:50 AM [facility] LABORATORYAdditional Information Interpreted at [facility] - [address] [place] [address] [address]/13/2025 11:50 AM [facility] CENTRAL LABORATORYSpecimen (Source)Anatomical Location / LateralityCollection Method / VolumeCollection TimeReceived TimeOther (Cervical Biopsy)Non-Blood / Oulslyf1606/11/2025 11:05 AM CST06/11/2025 2:50 PM CSTComment:Please add HPV testing to cervical samplesSpecimen (specimen) (Cervical Biopsy)Non-Blood / Iavmnek0006/11/2025 11:05 AM CST06/11/2025 2:50 PM CSTComment:Please add HPV testing to cervical samplesSpecimen (specimen) (Endocervical Curettings) 06/11/2025 11:05 AM CST06/11/2025 2:50 PM CSTComment:Please add HPV testing to cervical samples Narrative Authorizing ProviderResult TypeResult StatusRose Jamilah THORNTON PATHOLOGY/CYTOLOGYFinal ResultPerforming OrganizationAddressCity/State/ZIP Code Phone Number [facility] [address] [place] [address], * TRICHOMONAS, SUSHIL, AND BACTERIAL VAGINOSIS BY JOSIAH [[id number]] - vaginal (06/11/2025 11:00 AM TAPER OPERATOR)ComponentValueRef RangeTest MethodAnalysis Time Performed AtPathologist SignatureCANDIDA SPECIESNegativeNegative, NOT Detected 06/13/2025 10:04 PM [facility] LABORATORYCANDIDA EYOXECJGFgmqggzfPdjvzeop04/19/2025 10:04 PM CSTOCE[facility] CENTRAL LABORATORYTRICHOMONAS VVANegativeNegative, NOT Bgthzsbr32/19/2025 10:04 PM [facility] LABORATORYBACTERIAL VAGINOSIS NegativeNegative, NOT Elbwtxgl48/19/2025 10:04 PM CSTOCEANS [facility] CENTRAL LABORATORYSpecimen (Source)Anatomical Location / LateralityCollection Method / VolumeCollection TimeReceived TimeOtherVAGINAL SWAB / UnknownNon- Blood / Obbrrne0706/11/2025 11:00 AM CST06/13/2025 11:19 AM TAPER OPERATOR Narrative Authorizing ProviderResult TypeResult StatusGinette Gilliland PAMICROBIOLOGY Final ResultPerforming OrganizationAddressty/State/ZIP CodePhone Number [facility] [address] [address], [place] * GC CHLAMYDIA TRACH PROBE [[id number]] - vaginal (06/11/2025 11:00 AM TAPER OPERATOR) ComponentValueRef RangeTest MethodAnalysis TimePerformed AtPathologist SignatureCHLAMYDIA PROBENegative 06/13/2025 11:05 PM [facility] LABORATORYN GONORRHOEAE PROBENegative 06/13/2025 11:05 PM CSTOCEANS [facility]ICENTRAL LABORATORYSpecimen (Source)Anatomical Location / LateralityCollection Method / VolumeCollection TimeReceived Time OtherVAGINAL SWAB / UnknownNon-Blood / Scgxezy5006/11/2025 11:00 AM TAPER OPERATOR 06/13/2025 11:19 AM TAPER OPERATOR Narrative Authorizing ProviderResult TypeResult StatusGinette Gilliland PAMICROBIOLOGY Final ResultPerforming OrganizationAddAdvanced Surgical Hospital/State/ZIP CodePhone Number [facility] [address] [address], [place] * ANTI HCV [02810.2] (09/26/2024 8:57 AM TAPER OPERATOR)ComponentValueRef RangeTest Method Analysis TimePerformed AtPathologist SignatureHEPATITIS C ANTIBODYNON-REACTIVE NON-REACTIVEMedstar Union Memorial HospitaleComment: HCV antibody was non-reactive. There is no laboratory evidence of HCV infection. In most cases, no further action is required. However, if recent HCV exposure is suspected, a test for HCV RNA (test code 23959) is suggested. For additional information please refer to http://[employer]SafeRent/faq/EUJ13q6 (This link is being provided for informational/ educational purposes only.) Specimen (Source)Anatomical Location / LateralityCollection Method / Volume Collection TimeReceived TimeBloodBLOOD SPECIMEN / Guyihmb1509/26/2024 8:57 AM TAPER OPERATOR 09/26/2024 8:59 AM TAPER OPERATOR Narrative Authorizing ProviderResult TypeResult StatusMarlette Regional Hospital PASEND OUTS Final ResultPerforming OrganizationAddressCity/State/ZIP CodePhone Number [employer] [facility] [address] [place] [address], [facility] [address] [place] [address] * ANTI HIV 1/2 [10042.0] (09/26/2024 8:57 AM TAPER OPERATOR)ComponentValueRef RangeTest MethodAnalysis TimePerformed AtPathologist SignatureHIV AG/AB, 4TH GEN CFN-QDIOYWENEEB-DXONQLGJMjsml DiagnosticsBagley Medical CentereComment: HIV-1 antigen and HIV-1/HIV-2 antibodies were not detected. There is no laboratory evidence of HIV infection. PLEASE NOTE: This information has been disclosed to you from records whose confidentiality may be protected by state law. ??If your state requires such protection, then the state law prohibits you from making any further disclosure of the information without the specific written consent of the person to whom it pertains, or as otherwise permitted by law. A general authorization for the release of medical or other information is NOT sufficient for this purpose. ?? For additional information please refer to http://[employer]ent/faq/LBG480 (This link is being provided for informational/ educational purposes only.) The performance of this assay has not been clinically validated in patients less than 2 years old. Specimen (Source)Anatomical Location / LateralityCollection Method / Volume Collection TimeReceived TimeBloodBLOOD SPECIMEN / Kgkhyag1809/26/2024 8:57 AM TAPER OPERATOR 09/26/2024 8:59 AM TAPER OPERATOR Narrative Authorizing ProviderResult TypeResult StatusMacHenry [facility] PAS[facility] OUTS Final ResultPerforming OrganizationAddressCity/State/ZIP CodePhone Number [facility] [address] [place] [address], [facility] [address] [place] [address] * (ABNORMAL) HPV HIGH RISK (03/22/2024 12:20 PM CDT)ComponentValueRef RangeTest MethodAnalysis TimePerformed AtPathologist SignatureTYPE 16Positive(A)Negative 03/24/2024 4:11 PM CDJEFFERSON COMPRE[facility]ENSIVE HEALTH CENTERCENTRAL LABORATORYTYPE 18 AfzbkzsdPktmiwzr39/30/2024 4:11 PM CDUNIVERSITY [facility] LABORATORYOTHER HIGH RISK TYPESPositive(A)Aueaotea94/30/2024 4:11 PM CDUNIVERSITY OF [facility] LABORATORYSpecimen (Source)Anatomical Location / LateralityCollection Method / VolumeCollection TimeReceived TimeOther (Cervical)Non-Blood / Iewdglr7603/22/2024 12:20 PM CDT03/23/2024 10:27 AM CDT Narrative [facility] - 03/24/2024 4:11 PM CDT Specimen is positive for HPV type 16 DNA and the DNA of any one of, or combination of, the following high risk HPV types: 31, 33, 35, 39, 45, 51, 52, 56, 58,59, 66, 68. HPV type 18 DNA was undetectable or below the pre-set threshold. Methodology: Jose Litzy 4800 HPV Test Authorizing ProviderResult TypeResult StatusTracy Estefany THORNTON MICROBIOLOGYFinal ResultPerforming OrganizationAddressCity/State/ZIP CodePhone Number [facility] [address] [address], from Last 3 Months or Most Recently Relevant to Health Maintenance Insurance * Guarantor: Lucy Tenoriount TypeRelation to PatientDate of PhoneBilling AddressPersonal/CmksriXvmh55/07/[id number] [place] [phone] Advance Directives * Full Code (Latest Code Status on File) Date ActivatedDate InactivatedComments12/27/2020 8:23 AM12/29/2020 12:28 PMQuestion AnswerCommentsCode Status Discussion:* Not Discussed * Full Code Date ActivatedDate InactivatedComments08/25/2017 9:54 AM08/26/2017 4:48 PM * Full Code Date ActivatedDate InactivatedComments08/25/2017 9:54 AM08/25/2017 9:54 AM * Full Code Date ActivatedDate InactivatedComments08/25/2017 4:39 AM08/25/2017 9:54 AM * Full Code Date ActivatedDate InactivatedComments08/24/2017 5:17 PM08/25/2017 4:39 AM Care Teams Team MemberRelationshipSpecialtyStart [place] [address] [place] [address] PCP - General08/29/09 [place] [address] [place] [address] OB/GYNObstetrics and Hryjfryjqa58/19/17
[2025-07-10 18:45] LABS: Lymphocytes Absolute Auto 0.50 K/uL (0.90-2.90); Slide Review Reflex No
[2025-07-10 18:50] LABS: HCG Qualitative Serum* Negative (Negative)
[2025-07-10 19:00] LABS: Appearance Urine Clear (Clear)
[2025-07-10] MEDS: METOCLOPRAMIDE HCL 5 MG/ML INJ 10 MG IVP (20:22)
[2025-07-10 20:26] VITALS: BP 105/79; PULSE 75; RESP 18; O2SAT 99
[2025-07-10] MEDS: GI COCKTAIL (VISC LIDO/ANTACID) 30 ML PO (20:55)
== END 2025-07-10 21:41 | disposition home or self-care (01) ==
PROVIDERS: Emergency Provider Emergency Medicine
DX: K52.9 Noninfective gastroenteritis and colitis, unspecified (principal); R11.10 Vomiting, unspecified; E86.0 Dehydration
CPT/HCPCS: 36415; 74177; 80053; 81001; 83690; 84703; 85025; 87045; 87046; 87427; 87493; 96361; 96374; 96375; 99284; 99285; A9270; J1200; J2405; J2765; J7030; Q9967